=== PATIENT | female | born 1970 | race African-American/Black ===

== ENCOUNTER 2017-03-22 17:38 | Emergency (ER) | payer SELFPAY ==
[~2017-03-22] VITALS: Ht 177.8 cm; Wt 82.0 kg
[2017-03-22] MEDS ORDERED: MAGNESIUM/ALUMINUM HYDROXIDE/SIMETHICONE 30ML UDC PO STA (18:34)
[2017-03-22] MEDS ORDERED: FAMOTIDINE 20MG/2ML VIAL IV STA (18:34)
[2017-03-22] MEDS ORDERED: SODIUM CHLORIDE 0.9% 1,000 ML IV ONE (18:34)
[2017-03-22 18:53] LABS: BASOPHILS % 0.5 % (0.0-2.0); HEMATOCRIT. 35.4 % (36.0-48.0); HEMOGLOBIN. 11.9 g/dL (12.0-16.0); LYMPHOCYTES % 29.3 % (20.0-50.0); MEAN CORPUSCULAR HEMOGLOBIN 29.9 pg (28.0-32.0); MEAN CORPUSCULAR VOLUME 88.7 fL (81.0-99.0); MEAN PLATELET VOLUME 9.3 fl (7.4-10.4); MONOCYTES % 11.3 % (2.0-8.0); NEUTROPHILS % 52.9 % (40.0-76.0); PLATELET 226 x1000/uL (130-400); RED BLOOD CELL COUNT 3.99 mill/uL (4.2-5.4)
[2017-03-22 19:00] LABS: HCG SCREEN NEGATIVE
[2017-03-22 19:02] LABS: D-DIMER 0.4 mg/L FEU (<0.50)
[2017-03-22 19:09] LABS: CARBON DIOXIDE 27 mEq/L (21-32); CHLORIDE 108 mEq/L (98-107); CREATINE KINASE 90 IU/L (26-192); ETHANOL BLOOD < 10 mg/dL; TROPONIN I < 0.02 ng/mL (0.00-0.04)
[2017-03-22 20:58] VITALS: BP 114/72
== END 2017-03-22 21:00 | disposition home or self-care (01) ==
LOC: ER 19:12
DX: K20.9 Esophagitis, unspecified (principal); R07.89 Other chest pain
CPT/HCPCS: 36415; 71010; 80053; 82550; 83690; 83880; 84484; 84703; 85025; 85379; 85610; 93005; 96361; 96374; 99285; G0482; J3490; J7030; Z7610